=== PATIENT | female | born 1935 | race Caucasian/White ===

== ENCOUNTER 2023-07-18 05:05 | Day surgery (SDC) | payer OTHER, MEDICARE ==
[2023-07-16 15:30] VITALS: BMI 29.5
[2023-07-18] MEDS ORDERED: LIDOCAINE HCL 1%, 10 MG/ML (20ML VIAL) ONE (07:27)
[2023-07-18] MEDS ORDERED: LIDOCAINE HCL 1%, 10 MG/ML (20ML VIAL) INF ONE (07:34)
[2023-07-18 10:13] VITALS: BP 171/72; PULSE 63; RESP 16; TEMP 97.7
== END 2023-07-18 11:10 | disposition home or self-care (01) ==
LOC: JASU-SURG 05:05
PROVIDERS: ATTEND Orthopaedic Surgery
PROC: 015D3ZZ Destruction of Femoral Nerve, Percutaneous Approach (ICD-10-PCS; principal; 2023-07-18 08:00)
DX: M17.11 Unilateral primary osteoarthritis, right knee (principal); M25.561 Pain in right knee